=== PATIENT | female | born 1975 | race Two or more races ===

== ENCOUNTER 2016-12-01 16:31 | Observation (INO) | payer MEDICAID | END 2016-12-01 17:50 | disposition left against medical advice (07) | LOC: L&D 16:31 | PROVIDERS: ADMIT Specialist; ATTEND Specialist | DX: O62.9 Abnormality of forces of labor, unspecified (principal); Z3A.39 39 weeks gestation of pregnancy | CPT/HCPCS: 96372; 99281; G0378 ==

== ENCOUNTER 2020-10-20 19:31 | Emergency (ER) | payer MEDICAID ==
[~2020-10-20] VITALS: Ht 167.6 cm; Wt 89.0 kg
[2020-10-20] MEDS ORDERED: IBUPROFEN 600MG TABLET PO STA (21:36)
[2020-10-20] MEDS ORDERED: IBUP-2028 MT (22:44)
[2020-10-20 23:02] VITALS: BP 119/76
== END 2020-10-20 23:07 | disposition home or self-care (01) ==
LOC: ER 19:31
DX: M25.561 Pain in right knee (principal); W01.0XXA Fall on same level from slipping, tripping and stumbling without subsequent striking against object, initial encounter; Y93.89 Activity, other specified; Y92.9 Unspecified place or not applicable
CPT/HCPCS: 29505; 73562; 81025; 99283